=== PATIENT | male | born 1995 | race Two or more races ===

== ENCOUNTER 2025-04-12 06:47 | Emergency (ER) | payer OTHER ==
[~2025-04-12] VITALS: Ht 162.6 cm; Wt 113.4 kg
[2025-04-12] MEDS ORDERED: OLANZAPINE ZYDIS 5 MG TAB.RAPDIS ONE (07:08)
[2025-04-12] MEDS: OLANZAPINE ZYDIS 5 MG TAB.RAPDIS PO ONE (07:14)
[2025-04-12] MEDS ORDERED: LORAZEPAM INJ 2 MG/ML VIAL IM ONE (08:30)
[2025-04-12] MEDS ORDERED: LORAZEPAM 1 MG TABLET ONE (09:57)
[2025-04-12] MEDS: LORAZEPAM 1 MG TABLET PO ONE (10:02)
[2025-04-12 11:23] VITALS: BP 134/84; TEMP 98.9; O2SAT 93
== END 2025-04-12 11:24 | disposition home or self-care (01) ==
LOC: ER 06:49
DX: F23 Brief psychotic disorder (principal); F84.0 Autistic disorder; R07.9 Chest pain, unspecified; Z20.822 Contact with and (suspected) exposure to COVID-19